=== PATIENT | female | born 1940 | race Caucasian/White ===

== ENCOUNTER 2024-08-05 17:11 | Emergency (ER) | payer MEDICARE, SELFPAY ==
[2024-08-05 17:28] VITALS: BP 115/81
--- NOTE | 2024-08-05 17:28 | ED.GENMED ---
ED Provider Triage
<Agustín Godwin Jr., PA-C - Last Filed: 08/05/24 17:35>
-
Patient seen by provider in Triage?: Seen in Triage
Attestation: A medical screening examination has been initiated by a qualified medical provider. Based on the assessment performed at this time, it has been determined that an emergent medical condition may exist and the patient has been informed
that further medical evaluation and possible additional diagnostic testing may be needed.
HPI: 84-year-old female presenting with concerns of ongoing urinary symptoms. Also has a cough. Lack of appetite and nausea present. . Dx'd with UTI 12 days ago treated with doxy. Additionally patient has diffuse expiratory wheezing. Patient
was given initial albuterol as well as dexamethasone.
GENERAL: Alert , in no apparent distress
EYE: No visual abnormalities.
NECK: Trachea midline
ENT: No visible abnormalities.
LUNGS: No acute respiratory distress
NEUROLOGICAL: Alert and oriented
SKIN: Skin intact. No visible changes.
MUSCULOSKELETAL: Moving extremities normally
PSYCH: Normal and appropriate interaction.
This is a medical evaluation conducted in person to initiate diagnostic evaluation and provide initial therapeutics. Please see further documentation by the treating clinician.
History of Present Illness
<Agustín Godwin Jr., PA-C - Last Filed: 08/05/24 17:35>
General
Chief Complaint: Breathing Problem
Time Seen by Provider: 08/05/24 21:04
<Abdelrahman Lebron DO - Last Filed: 08/07/24 22:48>
General
Source: patient and family
Exam Limitations: none
Nursing documentation reviewed up to this point in time: agreed with
History of Present Illness
History of Present Illness:
Pleasant 84-year-old female presents to the emergency department with diffuse abdominal pain, mild respiratory distress, and improving urinary tract infection symptoms. Patient started with breathing issues 12 days ago. Was seen by primary care
provider and started doxycycline. Patient has been unable to take any [id number] medications due to them causing GI upset. She was diagnosed with a concurrent urinary tract infection and given the antibiotic to cover both a 'bronchitis 'and
the UTI. Patient states that she is not improving. She also reports that she has been unable to eat anything substantial. She states that the anorexia has been present only for the last 6 months but has worsened over the last few days. Patient
states that she had a small bowel movement yesterday. She noted that it was much less volume than typical. Patient has a history of chronic low back pain and does take pain medication for that. She reports no worsening of her low back pain.
Vital signs are stable. Patient not hypoxic
Nursing note reviewed. I agree with nursing documentation up to this point in time.
Home Meds and allergies reviewed.
NUMBER AND COMPLEXITY OF PROBLEMS ADDRESSED AT THE ENCOUNTER
� Chronic conditions affecting care: Chronic low back pain, subacute anorexia that waxes and wanes,
� Acute Exacerbation and/or Progression of Chronic Illness:
� Differential Diagnosis includes: Persistent UTI, pneumonia
AMOUNT AND/OR COMPLEXITY OF DATA TO BE REVIEWED AND ANALYZED
I performed an independent evaluation of the following and my interpretation is:
EKG:
Pulse Ox: Not Hypoxic
Regional Office Coordinator: Sinus Rhythm
CT:
X-rays:
Ultrasound:
Laboratory Studies:
Other:
Review of other/old records:
Clinical information was obtained by an independent historian: Daughter is present at the bedside.
Prescriptions/Medications Considered but not given:
Further testing considered but not performed:
RISK OF COMPLICATIONS AND/OR MORBIDITY OR MORTALITY OF PATIENT MANAGEMENT
Social determinants of health affecting care: Good Social Support lives in her own home with her son in-law and daughter
Discussion with other providers:
Escalation of care including admission/observation vs risk of discharge considered: After being observed in the emergency department, patient is
CRITICAL CARE NOTE:
Total Time (exclusive of procedures):
Update:
Past History
<Agustín Godwin Jr., PA-C - Last Filed: 08/05/24 17:35>
Past History
ED Past Medical History: CAD, HTN, MD, Other (Chronic back pain) and Other (Vertigo)
ED Past Surgical History: Cardiac (CABG 4 years ago)
Social History
Tobacco: Non-smoker
Alcohol: None
Living: with family
Employment: Retired
Family History
Family History: Negative Diabetes, Hypertension, Early CAD, Asthma or Cancer
Review of Systems
<DO Binh Marshall Last Filed: 08/07/24 22:48>
Review of Systems
Allergies reviewed?: Yes
Other source history: family
All Other Systems: ROS reviewed and negative except as documented in HPI and ROS
Constitutional: Reports fever
EENT: Reports no symptoms
Respiratory: Reports cough and trouble breathing
Cardiac: Denies chest pain
ABD/GI: Reports abdominal pain
: Reports dysuria; Denies frequency, flank pain or difficulty voiding
Musculoskeletal: Reports no symptoms
Skin: Reports no symptoms
Neurological: Reports weakness
Endocrine: Reports no symptoms
Hematologic/Lymphatic: Reports no symptoms
Psychiatric: Reports anxiety
Phy Exam
<DO Binh Marshall Last Filed: 08/07/24 22:48>
General Physical Exam
General Presentation: well appearing and mild distress (Ambulating with a cane)
General age: appears younger than age
General Skin: warm and dry
General Habitus: normal
General Mental: alert
General Hydration: appears well hydrated
ENT Exam
ENT Exam: EOMI, pharynx normal, neck supple and normocephalic
Eye Exam
Eye Exam: PERRL, cornea clear and conjunctiva normal
Cardiovascular Exam
Cardiovascular Exam: regular rate/rhythm and no edema
Pulmonary Exam
Pulmonary Exam: lungs clear and no respiratory distress
Gastrointestinal Exam
Gastrointestinal Exam: normal bowel sounds, non tender, soft, no organomegaly, no pulsatile mass and non distended
Neurological Exam
Neurological Exam: alert and oriented x3
Musculoskeletal Exam
Musculoskeletal Exam: full ROM and no edema
Skin Exam
Skin Exam: normal color, warm/dry, no rash and no petechia
Psychiatric Exam
Psychiatric Exam: normal mood/affect
Scores
<Abdelrahman Lebron DO - Last Filed: 08/07/24 22:48>
Heart Failure Risk
Heart Failure Risk Score: Not Applicable
Course
<Agustín Godwin Jr., PA-C - Last Filed: 08/05/24 17:35>
Orders/Labs/Results
Orders:
Orders
08/05/24 17:30
Chest [CR Chest - 2 Views ] Urgent
Comment:
Reason For Exam: cough
08/05/24 17:34
Dexamethasone [Decadron] 10 mg PO NOW STA
08/05/24 17:40
Albuterol [ProAIR HFA INHALER] 2 puff INH R NOW STA
08/05/24 17:44
Complete Blood Count/With Diff Urgent
Comprehensive Metabolic Panel Urgent
Lipase Urgent
08/05/24 20:19
Urinalysis Reflex To Culture Urgent
Date Specimen was Collected: 08/05/24
Time Specimen was Collected: 20:15
Urine Microscopic Reflex Cult Urgent
08/05/24 21:18
CT Abd/pelvis W Iv Cont Urgent
Comment:
Reason For Exam: abd pain, inability to eat
08/05/24 21:25
EKG- Treatment ONCE
0.9% Sodium Chloride 1000 ml [Nss] 1,000 ml IV BOLUS
08/05/24 21:26
Ondansetron Injectable [Zofran] 4 mg IV NOW STA
Abnormal Lab Results
08/05/24 08/05/24
17:44 20:19
Hct 48.4 H %
(37.0-47.0)
MCHC 32.9 L g/dL
(33.0-37.0)
Absolute Monos (auto) 0.8 H 10^3/uL
(0.1-0.6)
Sodium 132 L mmol/L
(135-145)
Chloride 95 L mmol/L
(98-107)
Carbon Dioxide 32 H mmol/L
(22-30)
Glucose 142 H mg/dl
(70-99)
Total Bilirubin 1.8 H mg/dl
(0.2-1.3)
AST 37 H U/L
(14-36)
Urine Ketones 1+ A
(Negative)
Ur Occult Blood Reflex 1+ A
(Negative)
Urine RBC 3-6 A /HPF
(0-2)
Urine Albumin (Reflex) 2+ A
(Neg - Trace)
08/05/24 17:44
08/05/24 17:44
Vital Signs
Initial and Last Documented VS:
Initial Vital Signs
Temp Pulse Resp BP Pulse Ox
98.6 F 95 20 115/81 96
08/05/24 17:28 08/05/24 17:28 08/05/24 17:28 08/05/24 17:28 08/05/24 17:28
Last Documented Vital Signs
Temp Pulse Resp BP Pulse Ox
97.8 F 90 18 141/67 94
08/05/24 20:10 08/05/24 21:54 08/05/24 20:10 08/05/24 21:54 08/05/24 21:54
Clydelt;Abdelrahman Lebron, - Last Filed: 08/07/24 22:48>
Orders/Labs/Results
Orders:
Orders
08/05/24 17:30
Chest [CR Chest - 2 Views ] Urgent
Comment:
Reason For Exam: cough
08/05/24 17:34
Dexamethasone [Decadron] 10 mg PO NOW STA
08/05/24 17:40
Albuterol [ProAIR HFA INHALER] 2 puff INH R NOW STA
08/05/24 17:44
Complete Blood Count/With Diff Urgent
Comprehensive Metabolic Panel Urgent
Lipase Urgent
08/05/24 20:19
Urinalysis Reflex To Culture Urgent
Date Specimen was Collected: 08/05/24
Time Specimen was Collected: 20:15
Urine Microscopic Reflex Cult Urgent
08/05/24 21:18
CT Abd/pelvis W Iv Cont Urgent
Comment:
Reason For Exam: abd pain, inability to eat
08/05/24 21:25
EKG- Treatment ONCE
0.9% Sodium Chloride 1000 ml [Nss] 1,000 ml IV BOLUS
08/05/24 21:26
Ondansetron Injectable [Zofran] 4 mg IV NOW STA
Abnormal Lab Results
08/05/24 08/05/24
17:44 20:19
Hct 48.4 H %
(37.0-47.0)
MCHC 32.9 L g/dL
(33.0-37.0)
Absolute Monos (auto) 0.8 H 10^3/uL
(0.1-0.6)
Sodium 132 L mmol/L
(135-145)
Chloride 95 L mmol/L
(98-107)
Carbon Dioxide 32 H mmol/L
(22-30)
Glucose 142 H mg/dl
(70-99)
Total Bilirubin 1.8 H mg/dl
(0.2-1.3)
AST 37 H U/L
(14-36)
Urine Ketones 1+ A
(Negative)
Ur Occult Blood Reflex 1+ A
(Negative)
Urine RBC 3-6 A /HPF
(0-2)
Urine Albumin (Reflex) 2+ A
(Neg - Trace)
08/05/24 17:44
08/05/24 17:44
Vital Signs
Initial and Last Documented VS:
Initial Vital Signs
Temp Pulse Resp BP Pulse Ox
98.6 F 95 20 115/81 96
08/05/24 17:28 08/05/24 17:28 08/05/24 17:28 08/05/24 17:28 08/05/24 17:28
Last Documented Vital Signs
Temp Pulse Resp BP Pulse Ox
97.8 F 90 18 141/67 94
08/05/24 20:10 08/05/24 21:54 08/05/24 20:10 08/05/24 21:54 08/05/24 21:54
<Abdelrahman Lebron DO - Last Filed: 08/07/24 22:48>
*Critical Care Note
Total Time (30-74mins, 75-104mins- exclusive of procedures): Not Applicable
<Abdelrahman Lebron DO - Last Filed: 08/07/24 22:48>
Update Note
Update Note:
Gave patient a copy of the CAT scan results. Discussed the pulmonary nodules the renal mass and the pneumonitis. Patient will follow-up. I will give her a prescription for Pepcid and read.
ED Attending Note
<Agustín Godwin Jr., PA-C - Last Filed: 08/05/24 17:35>
-
Portions of this chart may have been created with voice recognition software.� Occasional wrong word or��sound alike� substitutions may have occurred due to the inherent limitations of voice recognition software.
Discharge Plan
Departure
Patient Disposition: Home (Routine Discharge)
Date of Disposition: 08/05/24
Time of Disposition: 23:33
Patient with high blood pressure during this ER visit?: Yes
Condition: Good
Discharge Problem:
Abdominal pain, Chronic back pain, Pneumonitis, Pulmonary nodule, Kidney mass
Instructions: Pulmonary nodule, Pneumonitis, Abdominal pain in adults - Discharge instructions, BLOOD PRESSURE
Prescriptions:
New
famotidine [Pepcid] 40 mg tablet
40 mg PO DAILY Qty: 20 0RF
No Action
Amlodipine
PO DAILY
aspirin 81 MG tablet,chewable
81 mg PO DAILY
Losartan
PO DAILY
methylprednisolone [Medrol (Bang)] 4 MG tablets,dose pack
4 tab PO . DIRECT Qty: 1 0RF
ketorolac 10 mg tablet
10 mg PO Q6H PRN (Reason: pain) 4 Days Qty: 16 0RF
Referrals:
Lucita Goodson MD [Active] -
Ruddy Wolfe DO [Family Provider] -
Activity Restrictions/Additional Instructions:
It was a pleasure meeting you and taking part in your care. We hope for your continued healing and wellness.
Please read discharge instructions in their entirety. However, they are for general education and may not describe your exact diagnosis at discharge. Information on your ER visit and medical conditions were discussed with you along with appropriate
follow up information...
If indicated, please take your medications as instructed and indicated on discharge paperwork.
Please schedule a follow up appointment as directed. Call to schedule an appointment
Please return to the emergency department with ANY change in, persisting, or worsening of symptoms. If any of your symptoms do not improve, or persist, or become more severe within 6-12 hours, please return to the emergency department for further
care.
Please return to the emergency department if you develop a headache, neck pain/stiffness, fever greater than 100.4F, chest pain, shortness of breath, persistent nausea, vomiting, slurred speech, difficulty walking, numbness/tingling, weakness, signs
of infection or any other symptoms that are worrisome to you.
If you have any questions or concerns please do not hesitate to call the Hospital at or E-mail me directly at [email or web address]
Interventions
Interventions:
*Risk Screen - Suicide Last Done: 08/05/24 17:28
*General Assessment Last Done: 08/05/24 17:28
*Neglect/Abuse Screening Last Done: 08/05/24 17:28
ED- Fall Risk Assessment Last Done: 08/06/24 00:11
*ED COVID-19 Vaccine History Last Done: 08/06/24 00:11
*Nursing Disposition Last Done: 08/06/24 00:11
ED- Cardiac Assessment Last Done: 08/06/24 00:11
ED- Pulmonary Assessment Last Done: 08/06/24 00:11
Discharge Date and Time
Discharge Date/Time: 08/06/24 00:12
Print Language: AMHARIC
[2024-08-05] MEDS: DECADRON 10 MG PO (17:39)
[2024-08-05 17:54] LABS: % Basophils 0.2 % (0-2); % Immature Granulocytes 0.2 % (0-0.5); % Lymphocytes 30.9 % (20.5-51.1); % Monocytes 7.9 % (1.7-9.3); % Neutrophils 59.8 % (42.2-75.2); Absolute Eosinophils 0.1 10^3/uL (0-0.7); Absolute Monocytes 0.8 10^3/uL (0.1-0.6); Absolute Neutrophils 5.9 10^3/uL (1.4-6.5); Hematocrit 48.4 % (37.0-47.0); Hemoglobin 15.9 g/dL (12.0-16.0); Mean Corp Hgb Conc. 32.9 g/dL (33.0-37.0); Mean Corpuscular Hgb 29.7 pg (27.0-31.0); Mean Corpuscular Volume 90.5 fL (81.0-99.0); Mean Platelet Volume 9.5 fL (7.4-10.4); Nucleated Red Blood Cells % 0 %; Platelet Count 208 10^3/uL (130-400); Red Blood Cell Count 5.35 10^6/uL (4.20-5.40); Red Cell Dist. Width 12.8 % (11.5-14.5); White Blood Cell Count 9.8 10^3/uL (4.8-10.8)
[2024-08-05 18:10] LABS: ALT (SGPT) 35 U/L (0-35); AST (SGOT) 37 U/L (14-36); Albumin 4.7 g/dl (3.5-5.0); Alkaline Phosphatase 108 U/L (38-126); Blood Urea Nitrogen 16 mg/dl (7-17); Calcium 9.2 mg/dl (8.4-10.2); Carbon Dioxide 32 mmol/L (22-30); Chloride 95 mmol/L (98-107); Glucose 142 mg/dl (70-99); Sodium 132 mmol/L (135-145); Total Bilirubin 1.8 mg/dl (0.2-1.3); Total Protein 7.8 g/dl (6.3-8.2); eGFR > 60.00
[2024-08-05 18:11] LABS: Lipase 267 U/L (23-300)
[2024-08-05 20:10] VITALS: BP 148/80
[2024-08-05 20:26] LABS: Urine Albumin 2+ (Neg - Trace); Urine Bilirubin Negative (Negative); Urine Character Clear (Clear); Urine Color Yellow; Urine Glucose Negative (Negative); Urine Ketone 1+ (Negative); Urine Leukocyte Negative (Negative); Urine Nitrite Negative (Negative); Urine Occult Blood 1+ (Negative); Urine Urobilinogen Negative (Neg - 1+)
[2024-08-05 20:50] LABS: Urine White Cell 0-2 /HPF (0-5)
[2024-08-05] MEDS: ZOFRAN 4 MG IV (21:51)
[2024-08-05] MEDS: NSS 1000 IV (21:51)
[2024-08-05 21:53] VITALS: BP 141/67
[2024-08-05 21:54] VITALS: BP 141/67
== END 2024-08-06 00:12 | disposition home or self-care (01) ==
LOC: EMR 17:11
PROVIDERS: Physician Assistant; EMERGENCY PHYSICIAN Student in an Organized Health Care Education/Training Program; FAMILY PHYSICIAN Family Medicine
DX: R10.9 Unspecified abdominal pain (principal); M54.9 Dorsalgia, unspecified; J98.4 Other disorders of lung; R91.1 Solitary pulmonary nodule; N28.89 Other specified disorders of kidney and ureter; I10 Essential (primary) hypertension
CPT/HCPCS: 99284; 96374; 96361; 71046; 74177; 80053; 81003; 81015; 83690; 85025; Q9967

== ENCOUNTER → 2024-11-04 14:06 | Outpatient (REF) | payer MEDICARE, BC, SELFPAY | LOC: HWRAD 14:06 | PROVIDERS: ATTENDING PHYSICIAN Internal Medicine Critical Care Medicine; FAMILY PHYSICIAN Family Medicine | DX: R91.1 Solitary pulmonary nodule (principal) | CPT/HCPCS: 71250 ==

== ENCOUNTER 2024-12-28 15:35 | Emergency (ER) | payer MEDICARE, BC, SELFPAY ==
[2024-12-28] VITALS (7 sets, daily range): BP systolic 121–155; BP diastolic 47–67; BMI 28.9
[2024-12-28 16:00] LABS: Hematocrit 46.6 % (37.0-47.0); Hemoglobin 15.1 g/dL (12.0-16.0); Mean Corp Hgb Conc. 32.4 g/dL (33.0-37.0); Mean Corpuscular Volume 90.1 fL (81.0-99.0); Nucleated Red Blood Cells % 0 %; Platelet Count 192 10^3/uL (130-400); Red Cell Dist. Width 13.3 % (11.5-14.5)
[2024-12-28 16:11] LABS: INR 0.98; PT 13.3 Sec (11.4-14.6)
[2024-12-28 16:12] LABS: APTT 31.1 Sec (23.4-35.0)
[2024-12-28 16:15] LABS: ALT (SGPT) 20 U/L (0-35); AST (SGOT) 26 U/L (14-36); Albumin 4.5 g/dl (3.5-5.0); Alkaline Phosphatase 72 U/L (38-126); Blood Urea Nitrogen 23 mg/dl (7-17); Calcium 9.5 mg/dl (8.4-10.2); Carbon Dioxide 34 mmol/L (22-30); Chloride 104 mmol/L (98-107); Glucose 124 mg/dl (70-99); Potassium 4.5 mmol/L (3.5-5.1); Sodium 142 mmol/L (135-145); Total Protein 7.7 g/dl (6.3-8.2); eGFR > 60.00
[2024-12-28 16:26] LABS: Troponin I < 0.012 ng/ml
--- NOTE | 2024-12-28 18:50 | ED.GENMED ---
History of Present Illness
General
Chief Complaint: Chest Pain
Time Seen by Provider: 12/28/24 18:12
History of Present Illness
History of Present Illness:
TIME OF INITIAL EVALUATION
- 6:50 PM
REVIEW OF OLD RECORDS
- The patient has a history of high blood pressure, hyperlipidemia and has had DE in the past, the patient had quadruple bypass done in 2007, the patient was seen in the Emergency Department this past July with abdominal pain. I see no prior
admission to the hospital at [facility].
Note:
CHIEF COMPLAINT(S)
Chest pain
HISTORY OF PRESENT ILLNESS
The patient is an 84-year-old female who presented with the primary complaint of chest pain. She reports a history of cardiac surgery performed 17 years ago. The patient experiences chronic chest pain and mentioned that she tries to discern between
the different types of pain she experiences on a regular basis. The current chest pain she is experiencing is described as distinct from her usual pain, which she identified as 'chiropractic pain.'
PHYSICAL EXAM
General: Alert, no acute distress.
Skin: Warm, dry.
Head: Normocephalic, atraumatic.
Neck: Supple, trachea midline.
Eye, Ears, Nose, Mouth, and Throat: Oral mucosa moist.
Cardiovascular: Normal peripheral perfusion, No edema, there was a rather moderate to severe amount of tenderness to palpation of the anterior chest wall.
Respiratory: Respirations are non-labored.
Gastrointestinal: Abdomen nondistended
Back: Normal range of motion, Normal alignment.
Musculoskeletal: Normal range of motion, normal strength.
Neurological: Alert and oriented to person, place, time, and situation, No focal neurological deficit observed.
Psychiatric: Cooperative, appropriate mood & affect.
DIFFERENTIAL DIAGNOSIS
The Differential Diagnosis includes, in no particular order and is not limited to:
1. Myocardial infarction
2. Angina pectoris
3. Musculoskeletal pain
4. Gastroesophageal reflux disease
5. Costochondritis
6. Pericarditis
7. Aortic dissection
8. Pulmonary embolism
9. Pneumonia
10. Pleuritic chest pain
CARE-UPDATE
12/28/24 - 19:11
The patient began experiencing a new burning chest pain around 10 a.m. today, which differs from their usual chronic pain. The initial cardiac workup, including blood tests and x-ray, appears normal. Patient has a history of coronary disease and
underwent bypass surgery approximately 17 years ago but has not had a stress test since. Recent discomfort may relate to use of an aerobic device yesterday. The patient is advised to follow up with their shop clerk at [place] for further
evaluation. Awaiting results of repeat blood test to rule out myocardial infarction, as patient is at risk due to known coronary artery disease. Lung sounds are clear, and the patient is currently not exhibiting signs suggestive of acute coronary
syndrome. Further discussion planned post blood test results.
RADIOLOGY
- Chest x-ray shows no acute abnormality
EKG
- Sinus 83, left axis deviation, left bundle branch block is new in comparison to the EKG from 2013
LABS
- CBC and chemistries relatively unremarkable however the bicarb is 34 and BUN is 23, initial troponin less than 0.012 x 2
UPDATE
-SUMMARY OF ENCOUNTER
The patient, an 84-year-old female, presented to the emergency department with complaints of new burning chest pain. She has a history of cardiac surgery 17 years ago and experiences chronic chest pain that she associates with 'chiropractic pain.'
This new pain onset at approximately 10 a.m. today and is different from her usual pain. Two sets of cardiac blood tests and an EKG were completed, all of which returned normal results. The chest pain was noted to be reproducible upon pressure,
decreasing suspicion of a heart-related issue.
DISPOSITION
The patient is to be discharged with instructions to follow up with her shop clerk at [place] for further evaluation.
ASSESSMENT
The patients presentation is not indicative of an acute coronary syndrome or myocardial infarction due to normal EKG and cardiac blood work, and reproducibility of the pain. Chronic cardiac issues should be addressed with follow-up.
PLAN
The patient will continue to be monitored for any changes and advised to follow up with her shop clerk at [place] for further cardiac evaluation.
INDEPENDENT REVIEW OF LABS AND INTERPRETATION OF TESTS
My independent review of cardiac blood tests indicates they are normal on two separate occasions. My independent EKG interpretation also shows normal findings.
FOLLOW-UP INSTRUCTIONS
The patient is advised to follow up with her shop clerk at [place] for further evaluation of her cardiac history and any future related symptoms.
MEDICAL DECISION MAKING
-Chronic conditions affecting care: History of cardiac surgery and chronic chest pain. Differential diagnosis includes myocardial infarction, angina pectoris, musculoskeletal pain, gastroesophageal reflux disease, costochondritis, pericarditis,
aortic dissection, pulmonary embolism, pneumonia, pleuritic chest pain.
-Data:
Category 1:
The EKG and two sets of cardiac blood tests were reviewed and independently interpreted as normal.
-Risk:
Consideration of Admission/Observation: Escalation of care including admission/observation was considered given the complexity and risk of the patients presenting complaint and her underlying comorbidities. However, ultimately I feel the patient is
safe for outpatient management with close follow-up. Reasoning: Work-up is reassuring, does not reveal any acute life/organ threatening processes, patients symptoms well controlled upon reevaluation, reexamination is reassuring, vitals are stable,
patient agreeable with discharge, reliable for follow-up.
DIAGNOSIS
Unspecified chest pain (ICD-10: R07.9)
Past History
Past History
ED Past Medical History: CAD, HTN, DE, Other (Chronic back pain) and Other (Vertigo)
ED Past Surgical History: Cardiac (CABG 4 years ago)
Social History
Tobacco: Non-smoker
Alcohol: None
Living: with family
Employment: Retired
Family History
Family History: Negative Diabetes, Hypertension, Early CAD, Asthma or Cancer
Phy Exam
Physical Exam
Physical Exam:
See HPI
Scores
Heart Score for Chest Pain Patients
STEMI patient?: Not applicable
Course
Orders/Labs/Results
Orders:
Orders
12/28/24 15:37
ECG [Electrocardiogram (*1)] Urgent
Reason for Study: Chest Pain
EKG- Treatment ONCE
12/28/24 15:53
Complete Blood Count/With Diff Urgent
Comprehensive Metabolic Panel Urgent
PT/INR [Prothrombin Time] Urgent
Is patient on Coumadin/Warfarin?: No
Comment: [email or web address]
PTT Urgent
Troponin I Urgent
12/28/24 16:41
Chest [CR Chest - 2 Views ] Urgent
Comment:
Reason For Exam: cp/dyspnea
12/28/24 18:45
EKG- Treatment ONCE
12/28/24 18:55
EKG [Electrocardiogram (*1)] Urgent
Reason for Study: Chest Pain
12/28/24 19:01
Troponin I Urgent
Abnormal Lab Results
12/28/24
15:53
MCHC 32.4 L g/dL
(33.0-37.0)
Eosinophils % 6.5 H %
(0-6)
Carbon Dioxide 34 H mmol/L
(22-30)
BUN 23 H mg/dl
(7-17)
Glucose 124 H mg/dl
(70-99)
12/28/24 15:53
12/28/24 15:53
Vital Signs
Initial and Last Documented VS:
Initial Vital Signs
Temp Pulse Resp BP Pulse Ox
37.0 C 80 16 140/58 96
12/28/24 15:42 12/28/24 15:42 12/28/24 15:42 12/28/24 15:42 12/28/24 15:42
Last Documented Vital Signs
Temp Pulse Resp BP Pulse Ox
37.0 C 71 18 155/59 94
12/28/24 15:42 12/28/24 19:00 12/28/24 19:00 12/28/24 19:00 12/28/24 19:00
*Pulse Oximetry
SaO2: 95
Oxygen Mode of Delivery: Room air
Patient hypoxic: no
*Critical Care Note
Total Time (30-74mins, 75-104mins- exclusive of procedures): Not Applicable
ED Attending Note
-
Portions of this chart may have been created with voice recognition software.� Occasional wrong word or��sound alike� substitutions may have occurred due to the inherent limitations of voice recognition software.
Discharge Plan
Departure
Prescriptions:
No Action
aspirin 325 mg Tablet
162.5 mg PO QPM
amlodipine 5 mg tablet
5 mg PO QPM
losartan 100 mg tablet
100 mg PO QPM
famotidine [Pepcid] 40 mg tablet
40 mg PO DAILYPRN PRN (Reason: gerd)
tramadol 50 mg tablet
50 mg PO Q4H
Patient Comments:
she takes this every 4 hours 'like clockwork'
ibuprofen 200 mg Tablet
200 mg PO DAILYPRN PRN (Reason: mild pain)
furosemide 20 mg tablet
20 mg PO DAILY
albuterol sulfate 90 mcg/actuation HFA aerosol inhaler
2 puff INHALATION R Q4HPRN PRN (Reason: sob)
Praluent Pen 75 mg/mL pen injector
75 mg SC Q2W
Referrals:
Ruddy Wolfe DO [Family Provider, Family Practice]
Interventions
Interventions:
*Risk Screen - Suicide Last Done: 12/28/24 16:33
*General Assessment Last Done: 12/28/24 16:33
*Neglect/Abuse Screening Last Done: 12/28/24 16:33
*ED- Fall Risk Assessment Last Done: 12/28/24 16:33
*ED COVID-19 Vaccine History Last Done: 12/28/24 16:33
ED- Cardiac Assessment Last Done: 12/28/24 16:36
Discharge Date and Time
Print Language: FAROESE
[2024-12-28 19:34] LABS: Troponin I < 0.012 ng/ml
== END 2024-12-28 20:27 | disposition home or self-care (01) ==
LOC: EMR 15:35
PROVIDERS: Emergency Medicine; EMERGENCY PHYSICIAN Emergency Medicine; FAMILY PHYSICIAN Family Medicine
DX: R07.89 Other chest pain (principal); I10 Essential (primary) hypertension; E78.00 Pure hypercholesterolemia, unspecified; I25.2 Old myocardial infarction; I25.10 Atherosclerotic heart disease of native coronary artery without angina pectoris; Z82.49 Family history of ischemic heart disease and other diseases of the circulatory system; Z95.1 Presence of aortocoronary bypass graft
CPT/HCPCS: 99283; 71046; 80053; 84484; 85025; 85610; 85730; 93005